=== PATIENT | female | born 1945 | race Caucasian/White ===

== ENCOUNTER → 2018-11-03 | Outpatient (CLI) | payer MEDICARE ==
[2018-11-03 11:27] LABS: HCT 40.7 % (34.0-46.0); HGB 13.5 gm/dL (11.4-16.0); MCHC 33.2 g/dL (31.0-37.0); MCV 93.4 fL (80.0-100.0); Mean Platelet Volume 7.1; Platelet Count 269 k/uL (150-450); RBC 4.35 m/uL (3.80-5.40); RDW 12.9 % (11.5-15.5); WBC 7.3 k/uL (3.8-10.6)
[2018-11-03 13:22] LABS: Erythrocyte Sedimentation Rate 20 mm/hr (0-20)
== END ==
LOC: LABWHC1 10:51
PROVIDERS: ATTEND Physician Assistant
DX: M25.562 Pain in left knee (principal); M71.162 Other infective bursitis, left knee
CPT/HCPCS: 36415; 83520; 85027; 85652; 86140

== ENCOUNTER → 2018-11-24 | Outpatient (CLI) | payer MEDICARE ==
--- NOTE | 2018-11-24 10:40 | US ---
LOWER EXTREMITY VENOUS INSUFFICIENCY SIDE PERFORMED: Bilateral 1) Color flow is present and patency is documented in the following vessels. No DVT or SVT is noted . EIV Common Femoral Vein Deep Femoral Vein Femoral Vein Popliteal Vein Proximal Calf Veins Greater Saph Vein Upper Small Saph Vein 2) There is venous reflux noted at the following venous levels: none Patient of large body habitus. IMPRESSION: No sonographic evidence of deep venous thrombosis within either lower extremity.
== END | disposition home or self-care (01) ==
LOC: RADUSWWP 07:39
PROVIDERS: ATTEND Internal Medicine Infectious Disease
DX: I73.9 Peripheral vascular disease, unspecified (principal); L97.909 Non-pressure chronic ulcer of unspecified part of unspecified lower leg with unspecified severity; Z87.891 Personal history of nicotine dependence
CPT/HCPCS: 93923; 93970

== ENCOUNTER 2021-04-30 08:28 | Inpatient (IN) | payer MEDICARE ==
[2021-04-30] MEDS ORDERED: IPRATROPIUM-ALBUTEROL 3 ML NEB INHALATION STA (08:48)
[2021-04-30] MEDS ORDERED: methylPREDNISolone SOD SUCCI 125 MG/2 ML VIAL IV STA (08:48)
--- NOTE | 2021-04-30 08:50 | ED ---
General Adult HPI - General Chief complaint: Upper Respiratory Infection Stated complaint: SOB/Nausea Time Seen by Provider: 04/30/21 08:36 Source: patient, RN notes reviewed Mode of arrival: wheelchair Limitations: physical limitation - History of Present Illness Initial comments: This a 76-year-old female presents emergency Department chief complaint shortness of breath. Patient states symptoms started approximately 8 days ago have gradually worsen especially last 2 days. She states the cough is improved but her dyspnea is worsening. Patient states that she has not been tested for COVID-19. Patient states that she has had no known exposures no history of asthma or diagnosis COPD no she states she was walking smoker has not smoked in several years. No reported fever. Denies any leg pain or leg swelling on the usual no history of CHF. - Related Data Home Medications Medication Instructions Recorded Confirmed No Known Home Medications 04/30/21 04/30/21 Allergies Allergy/AdvReac Type Severity Reaction Status Date / Time salicylates Allergy Anaphylaxis Verified 04/30/21 10:26 Review of Systems ROS Statement: Those systems with pertinent positive or pertinent negative responses have been documented in the HPI. ROS Other: All systems not noted in ROS Statement are negative. Past Medical History Past Medical History: No Reported History History of Any Multi-Drug Resistant Organisms: None Reported Past Surgical History: No Surgical Hx Reported Past Psychological History: No Psychological Hx Reported Smoking Status: Former smoker Past Alcohol Use History: Occasional Past Drug Use History: None Reported General Exam Limitations: physical limitation General appearance: alert, in distress Head exam: Present: atraumatic, normocephalic, normal inspection Eye exam: Present: normal appearance, PERRL, EOMI. Absent: scleral icterus, conjunctival injection, periorbital swelling ENT exam: Present: normal exam, mucous membranes moist Neck exam: Present: normal inspection. Absent: tenderness, meningismus, lymphadenopathy Respiratory exam: Present: respiratory distress, wheezes, decreased breath sounds. Absent: normal lung sounds bilaterally, rales, rhonchi, stridor Cardiovascular Exam: Present: regular rate, normal rhythm, normal heart sounds. Absent: systolic murmur, diastolic murmur, rubs, gallop, clicks GI/Abdominal exam: Present: soft, normal bowel sounds. Absent: distended, tenderness, guarding, rebound, rigid Extremities exam: Present: pedal edema. Absent: calf tenderness Neurological exam: Present: alert, oriented X3 Course Vital Signs 12/05/21 12/05/21 12/05/21 08:30 09:35 10:43 Temperature 97.6 F Pulse Rate 86 79 Respiratory 22 22 23 Rate Blood Pressure 166/94 O2 Sat by Pulse 93 L 89 L Oximetry Medical Decision Making - Medical Decision Making 76-year-old presented for dyspnea. Patient appeared to be in distress. Patient found to be: Positive. Patient will be admitted for further evaluation treatment. - Lab Data Result diagrams: 04/30/21 09:04 04/30/21 09:04 Lab Results 04/30/21 04/30/21 04/30/21 Range/Units 08:39 09:04 09:04 WBC 3.9 (3.8-10.6) k/uL RBC 4.71 (3.80-5.40) m/uL Hgb 14.6 (11.4-16.0) gm/dL Hct 41.8 (34.0-46.0) % MCV 88.9 (80.0-100.0) fL MCH 31.0 (25.0-35.0) pg MCHC 34.9 (31.0-37.0) g/dL RDW 12.5 (11.5-15.5) % Plt Count 191 (150-450) k/uL MPV 8.0 Neutrophils % 70 % Lymphocytes % 17 % Monocytes % 9 % Eosinophils % 1 % Basophils % 1 % Neutrophils # 2.7 (1.3-7.7) k/uL Lymphocytes # 0.7 L (1.0-4.8) k/uL Monocytes # 0.4 (0-1.0) k/uL Eosinophils # 0.0 (0-0.7) k/uL Basophils # 0.0 (0-0.2) k/uL PT 10.3 (9.0-12.0) sec INR 1.0 (<1.2) APTT 21.6 L (22.0-30.0) sec Sodium (137-145) mmol/L Potassium (3.5-5.1) mmol/L Chloride (98-107) mmol/L Carbon Dioxide (22-30) mmol/L Anion Gap mmol/L BUN (7-17) mg/dL Creatinine (0.52-1.04) mg/dL Est GFR (CKD-EPI)AfAm (>60 ml/min/1.73 sqM) Est GFR (CKD-EPI)NonAf (>60 ml/min/1.73 sqM) Glucose (74-99) mg/dL Plasma Lactic Acid Gregory (0.7-2.0) mmol/L Calcium (8.4-10.2) mg/dL Magnesium (1.6-2.3) mg/dL Total Bilirubin (0.2-1.3) mg/dL AST (14-36) U/L ALT (4-34) U/L Alkaline Phosphatase (38-126) U/L Troponin I (0.000-0.034) ng/mL NT-Pro-B Natriuret Pep pg/mL Total Protein (6.3-8.2) g/dL Albumin (3.5-5.0) g/dL Coronavirus (PCR) Detected A (Not Detectd) 04/30/21 04/30/21 04/30/21 Range/Units 09:04 09:04 09:04 WBC (3.8-10.6) k/uL RBC (3.80-5.40) m/uL Hgb (11.4-16.0) gm/dL Hct (34.0-46.0) % MCV (80.0-100.0) fL MCH (25.0-35.0) pg MCHC (31.0-37.0) g/dL RDW (11.5-15.5) % Plt Count (150-450) k/uL MPV Neutrophils % % Lymphocytes % % Monocytes % % Eosinophils % % Basophils % % Neutrophils # (1.3-7.7) k/uL Lymphocytes # (1.0-4.8) k/uL Monocytes # (0-1.0) k/uL Eosinophils # (0-0.7) k/uL Basophils # (0-0.2) k/uL PT (9.0-12.0) sec INR (<1.2) APTT (22.0-30.0) sec Sodium 133 L (137-145) mmol/L Potassium 3.9 (3.5-5.1) mmol/L Chloride 95 L (98-107) mmol/L Carbon Dioxide 29 (22-30) mmol/L Anion Gap 9 mmol/L BUN 13 (7-17) mg/dL Creatinine 0.39 L (0.52-1.04) mg/dL Est GFR (CKD-EPI)AfAm >90 (>60 ml/min/1.73 sqM) Est GFR (CKD-EPI)NonAf >90 (>60 ml/min/1.73 sqM) Glucose 137 H (74-99) mg/dL Plasma Lactic Acid Gregory 1.1 (0.7-2.0) mmol/L Calcium 8.5 (8.4-10.2) mg/dL Magnesium 2.1 (1.6-2.3) mg/dL Total Bilirubin 0.7 (0.2-1.3) mg/dL AST 37 H (14-36) U/L ALT 22 (4-34) U/L Alkaline Phosphatase 84 (38-126) U/L Troponin I <0.012 (0.000-0.034) ng/mL NT-Pro-B Natriuret Pep pg/mL Total Protein 6.1 L (6.3-8.2) g/dL Albumin 3.3 L (3.5-5.0) g/dL Coronavirus (PCR) (Not Detectd) 04/30/21 Range/Units 09:04 WBC (3.8-10.6) k/uL RBC (3.80-5.40) m/uL Hgb (11.4-16.0) gm/dL Hct (34.0-46.0) % MCV (80.0-100.0) fL MCH (25.0-35.0) pg MCHC (31.0-37.0) g/dL RDW (11.5-15.5) % Plt Count (150-450) k/uL MPV Neutrophils % % Lymphocytes % % Monocytes % % Eosinophils % % Basophils % % Neutrophils # (1.3-7.7) k/uL Lymphocytes # (1.0-4.8) k/uL Monocytes # (0-1.0) k/uL Eosinophils # (0-0.7) k/uL Basophils # (0-0.2) k/uL PT (9.0-12.0) sec INR (<1.2) APTT (22.0-30.0) sec Sodium (137-145) mmol/L Potassium (3.5-5.1) mmol/L Chloride (98-107) mmol/L Carbon Dioxide (22-30) mmol/L Anion Gap mmol/L BUN (7-17) mg/dL Creatinine (0.52-1.04) mg/dL Est GFR (CKD-EPI)AfAm (>60 ml/min/1.73 sqM) Est GFR (CKD-EPI)NonAf (>60 ml/min/1.73 sqM) Glucose (74-99) mg/dL Plasma Lactic Acid Gregory (0.7-2.0) mmol/L Calcium (8.4-10.2) mg/dL Magnesium (1.6-2.3) mg/dL Total Bilirubin (0.2-1.3) mg/dL AST (14-36) U/L ALT (4-34) U/L Alkaline Phosphatase (38-126) U/L Troponin I (0.000-0.034) ng/mL NT-Pro-B Natriuret Pep 186 pg/mL Total Protein (6.3-8.2) g/dL Albumin (3.5-5.0) g/dL Coronavirus (PCR) (Not Detectd) Disposition Clinical Impression: COVID-19, Hypoxia Disposition: ADMITTED IP TO THIS HOSP Referrals: Yao Delvalle DO [Primary Care Provider] - 1-2 days
[2021-04-30] MEDS ORDERED: ALBUTEROL HFA INHALER INHALATION STA (09:19)
--- NOTE | 2021-04-30 09:36 | XR ---
EXAMINATION TYPE: XR chest 2V DATE OF EXAM: 04/30/2021 COMPARISON: NONE HISTORY: Shortness of breath TECHNIQUE: Frontal and lateral views of the chest are obtained. FINDINGS: The lungs are clear of consolidative, interstitial or masslike opacity. There is no pneumothorax. There are small bilateral pleural effusions.. Mild cardiac prominence but t he pulmonary vasculature is not congested. The osseous structures and soft tissues are intact. IMPRESSION: Mild cardiomegaly with small bilateral pleural effusions.
[2021-04-30 09:38] LABS: Basophils % (A) 1 %; Eosinophils % (A) 1 %; HCT 41.8 % (34.0-46.0); HGB 14.6 gm/dL (11.4-16.0); Lymphocytes # (A) 0.7 k/uL (1.0-4.8); Lymphocytes % (A) 17 %; MCHC 34.9 g/dL (31.0-37.0); MCV 88.9 fL (80.0-100.0); Monocytes # (A) 0.4 k/uL (0-1.0); Monocytes % (A) 9 %; Neutrophils # (A) 2.7 k/uL (1.3-7.7); Neutrophils % (A) 70 %; Platelet Count 191 k/uL (150-450); RBC 4.71 m/uL (3.80-5.40); RDW 12.5 % (11.5-15.5); WBC 3.9 k/uL (3.8-10.6)
[2021-04-30 09:46] LABS: ALT 22 U/L (4-34); AST 37 U/L (14-36); African American GFR (CKD) >90 (>60 ml/min/1.73 sqM); Albumin 3.3 g/dL (3.5-5.0); Alkaline Phosphatase 84 U/L (38-126); Anion Gap 9 mmol/L; Blood Urea Nitrogen 13 mg/dL (7-17); Calcium 8.5 mg/dL (8.4-10.2); Carbon Dioxide 29 mmol/L (22-30); Chloride 95 mmol/L (98-107); Glucose 137 mg/dL (74-99); Magnesium 2.1 mg/dL (1.6-2.3); Non-African American GFR(CKD) >90 (>60 ml/min/1.73 sqM); Potassium 3.9 mmol/L (3.5-5.1); Sodium 133 mmol/L (137-145); Total Bilirubin 0.7 mg/dL (0.2-1.3); Total Protein 6.1 g/dL (6.3-8.2)
[2021-04-30 10:10] LABS: Prothrombin Time 10.3 sec (9.0-12.0)
[2021-04-30 10:15] LABS: Partial Thromboplastin Time 21.6 sec (22.0-30.0)
--- NOTE | 2021-04-30 12:24 | P.HPIM ---
History of Present Illness Patient is a pleasant 76-year-old female came in with compensative shortness of breath found to have Covid 19 pneumonia patient is presently hypoxic requiring 2 L of oxygen. Patient's symptoms of loss of smell cough has been going on for about 8 days. I do not have any d-dimer available at this time. Patient is not a smoker. Patient denied any fever chills at home patient doesn't have any fever here. Has been fatigued patient denied any diarrhea nausea vomiting. REVIEW OF SYSTEMS: CONSTITUTIONAL: No fever. HEENT: No recent visual problems or hearing problems. Denied any sore throat. CARDIOVASCULAR: No chest pain, orthopnea, PND, no palpitations, no syncope. PULMONARY: no hemoptysis. GASTROINTESTINAL: No diarrhea, no nausea, no vomiting, no abdominal pain. NEUROLOGICAL: No headaches, no weakness, no numbness. HEMATOLOGICAL: Denies any bleeding or petechiae. GENITOURINARY: Denies any burning micturition, frequency, or urgency. MUSCULOSKELETAL/RHEUMATOLOGICAL: Denies any joint pain, swelling, or any muscle pain. ENDOCRINE: Denies any polyuria or polydipsia. The rest of the 14-point review of systems is negative. PHYSICAL EXAMINATION: GENERAL: The patient is alert and oriented x3, not in any acute distress. Well developed, well nourished. HEENT: Pupils are round and equally reacting to light. EOMI. No scleral icterus. No conjunctival pallor. Normocephalic, atraumatic. No pharyngeal erythema. No thyromegaly. CARDIOVASCULAR: S1 and S2 present. No murmurs, rubs, or gallops. PULMONARY: Chest is clear to auscultation, no wheezing or crackles. ABDOMEN: Soft, nontender, nondistended, normoactive bowel sounds. No palpable organomegaly. MUSCULOSKELETAL: No joint swelling or deformity. EXTREMITIES: No cyanosis, clubbing, or pedal edema. NEUROLOGICAL: Gross neurological examination did not reveal any focal deficits. SKIN: No rashes. Assessment and plan Covid 19 pneumonia with hypoxia: Patient will be started on Decadron, we will supplementation to IV fluids. Because of the duration of symptoms patient is not a candidate for Remdesivir. Neurology will be consulted. -hypovolemic hyponatremia patient was started on gentle hydration DVT prophylaxis: Lanoxin, d-dimer pending Past Medical History Past Medical History: No Reported History History of Any Multi-Drug Resistant Organisms: None Reported Past Surgical History: No Surgical Hx Reported Past Psychological History: No Psychological Hx Reported Smoking Status: Former smoker Past Alcohol Use History: Occasional Past Drug Use History: None Reported Medications and Allergies Home Medications Medication Instructions Recorded Confirmed Type No Known Home Medications 04/30/21 04/30/21 History Allergies Allergy/AdvReac Type Severity Reaction Status Date / Time salicylates Allergy Anaphylaxis Verified 04/30/21 10:26 Physical Exam Vitals: Vital Signs Temp Pulse Resp BP Pulse Ox 04/30/21 10:43 79 23 89 L 04/30/21 09:35 22 04/30/21 08:30 97.6 F 86 22 166/94 93 L Intake and Output 04/29/21 04/30/21 04/30/21 22:59 06:59 14:59 Other: Weight 104.326 kg Results CBC & Chem 7: 04/30/21 09:04 04/30/21 09:04 Labs: Abnormal Lab Results - Last 24 Hours (Table) 04/30/21 04/30/21 04/30/21 Range/Units 08:39 09:04 09:04 Lymphocytes # 0.7 L (1.0-4.8) k/uL APTT 21.6 L (22.0-30.0) sec Sodium (137-145) mmol/L Chloride (98-107) mmol/L Creatinine (0.52-1.04) mg/dL Glucose (74-99) mg/dL AST (14-36) U/L Total Protein (6.3-8.2) g/dL Albumin (3.5-5.0) g/dL Coronavirus (PCR) Detected A (Not Detectd) 04/30/21 Range/Units 09:04 Lymphocytes # (1.0-4.8) k/uL APTT (22.0-30.0) sec Sodium 133 L (137-145) mmol/L Chloride 95 L (98-107) mmol/L Creatinine 0.39 L (0.52-1.04) mg/dL Glucose 137 H (74-99) mg/dL AST 37 H (14-36) U/L Total Protein 6.1 L (6.3-8.2) g/dL Albumin 3.3 L (3.5-5.0) g/dL Coronavirus (PCR) (Not Detectd)
[2021-04-30] MEDS ORDERED: ACETAMINOPHEN TAB 325 MG TAB PO PRN (13:17)
[2021-04-30] MEDS ORDERED: NALOXONE 0.4 MG/ML 1 ML VIAL IV PRN (13:17)
[2021-04-30 16:23] LABS: Glucose,Whole Blood 181 mg/dL (75-99)
[2021-04-30] MEDS: ASCORBIC ACID 500 MG TAB PO SCH ×2 (16:44→21:44)
[2021-04-30] MEDS: SODIUM CHLORIDE 0.9% 1,000 ML IV SCH (16:45)
[2021-04-30] MEDS: ENOXAPARIN 40 MG/0.4 ML SYRINGE SQ SCH (16:45)
[2021-04-30] MEDS: FAMOTIDINE 20 MG TAB PO SCH ×2 (16:45→21:43)
[2021-04-30] MEDS: INSULIN ASPART (NovoLOG) 100 UNIT/ML VIAL SQ SCH ×3 (17:00→21:43)
--- NOTE | 2021-04-30 17:48 | P.CNPUL ---
History of Present Illness Consult date: 04/30/21 Reason for consult: dyspnea, pneumonia History of present illness: This is a 76-year-old here patient hospitalized for COVID 19 related pneumonia. The patient started around 8 days ago to lose her sense of smell and she started having some shortness of breath and cough and. She is a pleasant 76-year-old female patient, who is presenting to the [facility]. No gastrointestinal symptoms of nausea vomiting or abdominal pain. No altered mentation. In the emergency, the patient was found to be afebrile. She was hemodynamically stable. Pulse ox was 93% dropped down to 89%. Her white cell count was 3.9 with hemoglobin of 14.6 and the patient count was 191, creatinine was 0.39 with a BUN of 13 and the sodium level was 133. The patient was placed on 2 L of oxygen by nasal cannula. Her COVID 19 testing came back positive. She had a d-dimer of 0.9, LFTs were normal, electrolytes were normal, proBNP level was nonelevated and the troponin was negative. Her chest x-ray shows some limited lower lobe infiltrate. No significant consolidation. She is currently on Decadron and Lovenox and IV fluids with normal saline at the rate of 75 mL an hour. She is also on vitamin C and vitamin D and zinc sulfate. Review of Systems CONSTITUTIONAL: No fever. HEENT: No recent visual problems or hearing problems. Denied any sore throat. CARDIOVASCULAR: No chest pain, orthopnea, PND, no palpitations, no syncope. PULMONARY: no hemoptysis. GASTROINTESTINAL: No diarrhea, no nausea, no vomiting, no abdominal pain. NEUROLOGICAL: No headaches, no weakness, no numbness. HEMATOLOGICAL: Denies any bleeding or petechiae. GENITOURINARY: Denies any burning micturition, frequency, or urgency. MUSCULOSKELETAL/RHEUMATOLOGICAL: Denies any joint pain, swelling, or any muscle pain. ENDOCRINE: Denies any polyuria or polydipsia. The rest of the 14-point review of systems is negative. Past Medical History Past Medical History: No Reported History History of Any Multi-Drug Resistant Organisms: None Reported Past Surgical History: No Surgical Hx Reported Past Psychological History: No Psychological Hx Reported Smoking Status: Former smoker Past Alcohol Use History: Occasional Past Drug Use History: None Reported Medications and Allergies Home Medications Medication Instructions Recorded Confirmed Type No Known Home Medications 04/30/21 04/30/21 History Allergies Allergy/AdvReac Type Severity Reaction Status Date / Time salicylates Allergy Anaphylaxis Verified 04/30/21 10:26 Physical Exam Vitals: Vital Signs Temp Pulse Resp BP Pulse Ox 04/30/21 14:30 95 24 107/69 96 04/30/21 10:43 79 23 89 L 04/30/21 09:35 22 04/30/21 08:30 97.6 F 86 22 166/94 93 L Intake and Output 04/30/21 04/30/21 04/30/21 06:59 14:59 22:59 Other: Weight 104.326 kg General appearance: alert, in distress, currently on 2 L of oxygen by nasal cannula. Breathing is nonlabored. Head exam: Present: atraumatic, normocephalic, normal inspection Eye exam: Present: normal appearance, PERRL, EOMI. Absent: scleral icterus, conjunctival injection, periorbital swelling ENT exam: Present: normal exam, mucous membranes moist Neck exam: Present: normal inspection. Absent: tenderness, meningismus, lymphadenopathy Respiratory exam: Present: respiratory distress, wheezes, decreased breath sounds. Absent: normal lung sounds bilaterally, rales, rhonchi, stridor Cardiovascular Exam: Present: regular rate, normal rhythm, normal heart sounds. Absent: systolic murmur, diastolic murmur, rubs, gallop, clicks GI/Abdominal exam: Present: soft, normal bowel sounds. Absent: distended, tenderness, guarding, rebound, rigid Extremities exam: Present: pedal edema. Absent: calf tenderness Neurological exam: Present: alert, oriented X3 Results - Laboratory Findings CBC and BMP: 04/30/21 09:04 04/30/21 09:04 PT/INR, D-dimer PT 10.3 sec (9.0-12.0) 04/30/21 09:04 INR 1.0 (<1.2) 04/30/21 09:04 D-Dimer 0.95 mg/L FEU (<0.60) H 04/30/21 09:04 Abnormal lab findings: Abnormal Labs 04/30/21 04/30/21 04/30/21 08:39 09:04 09:04 Lymphocytes # 0.7 L APTT 21.6 L D-Dimer Sodium Chloride Creatinine Glucose POC Glucose (mg/dL) AST Total Protein Albumin Coronavirus (PCR) Detected A 04/30/21 04/30/21 04/30/21 09:04 09:04 16:21 Lymphocytes # APTT D-Dimer 0.95 H Sodium 133 L Chloride 95 L Creatinine 0.39 L Glucose 137 H POC Glucose (mg/dL) 181 H AST 37 H Total Protein 6.1 L Albumin 3.3 L Coronavirus (PCR) - Diagnostic Findings Chest x-ray: image reviewed Assessment and Plan Plan: 1acute COVID 19 infection his symptoms started approximately 8 days ago. The patient presented to the hospital because of some increased cough and shortness of breath. She was found to mildly hypoxic cardiac output is approximately nasal cannula. She was hospitalized, started on Decadron and Lovenox. She is outside the window for Remdesivir. She is currently doing well. She is hemodynamic is stable. Inflammatory markers including d-dimer has been low. Rest of the markers are still pending for now. plan Continue current treatment Titrate oxygen flow to maintain saturation above 90% Currently on 2 L of Oxymizer cannula Continue Decadron 6 mg by mouth daily Lovenox 40 mg subcu every 24 hours Awaiting LDH and CRP Agree on the multivitamins Monitor progress.
[2021-04-30 18:44] LABS: C Reactive Protein 4.4 mg/dL (<1.0)
[2021-04-30 23:30] LABS: Glucose,Whole Blood 156 mg/dL (75-99)
[2021-05-01] MEDS: SODIUM CHLORIDE 0.9% 1,000 ML IV SCH (06:26)
[2021-05-01 08:54] LABS: HCT 42.6 % (37.2-46.3); HGB 13.9 g/dL (12.0-15.0); MCH 29.9 pg (27.0-32.0); MCHC 32.6 g/dL (32.0-37.0); MCV 91.6 fL (80.0-97.0); Mean Platelet Volume 10.4 fL (9.5-12.2); Platelet Count 226 X 10*3/uL (140-440); RBC 4.65 X 10*6/uL (4.10-5.20); RDW 12.3 % (11.5-14.5); WBC 4.59 X 10*3/uL (4.50-10.00)
[2021-05-01 09:05] LABS: Glucose,Whole Blood 119 mg/dL (75-99)
[2021-05-01 09:45] LABS: African American GFR (CKD) 118.9 (60.0-200.0); Albumin 3.5 g/dL (3.8-4.9); Albumin/Globulin Ratio 1.52 (1.60-3.17); Anion Gap 10.8 mmol/L (10.00-18.00); BUN/Creat Ratio 31.25 Ratio (12.00-20.00); Blood Urea Nitrogen 12.5 mg/dL (9.0-27.0); Calcium 8.5 mg/dL (8.7-10.3); Carbon Dioxide 26.2 mmol/L (20.0-27.5); Globulin 2.3 g/dL (1.6-3.3); Non-African American GFR(CKD) 102.6 (60.0-200.0); Potassium 3.9 mmol/L (3.5-5.5); Total Bilirubin 0.4 mg/dL (0.30-1.20); Total Protein 5.8 g/dL (6.2-8.2)
[2021-05-01] MEDS: INSULIN ASPART (NovoLOG) 100 UNIT/ML VIAL SQ SCH ×3 (10:22→22:29)
[2021-05-01] MEDS: ASCORBIC ACID 500 MG TAB PO SCH ×2 (10:24→22:29)
[2021-05-01] MEDS: FAMOTIDINE 20 MG TAB PO SCH ×2 (10:24→22:29)
[2021-05-01] MEDS: ZINC SULFATE 220 MG CAP PO SCH (10:24)
[2021-05-01] MEDS: dexAMETHasone 2 MG TAB PO SCH (10:24)
[2021-05-01] MEDS: ENOXAPARIN 40 MG/0.4 ML SYRINGE SQ SCH (10:30)
--- NOTE | 2021-05-01 12:10 | P.PN ---
Subjective Progress Note Date: 05/01/21 Principal diagnosis: Dyspnea This is a 76-year-old here patient hospitalized for COVID 19 related pneumonia. The patient started around 8 days ago to lose her sense of smell and she started having some shortness of breath and cough and. She is a pleasant 76-year-old female patient, who is presenting to the [facility]. No gastrointestinal symptoms of nausea vomiting or abdominal pain. No altered mentation. In the emergency, the patient was found to be afebrile. She was hemodynamically stable. Pulse ox was 93% dropped down to 89%. Her white cell count was 3.9 with hemoglobin of 14.6 and the patient count was 191, creatinine was 0.39 with a BUN of 13 and the sodium level was 133. The patient was placed on 2 L of oxygen by nasal cannula. Her COVID 19 testing came back positive. She had a d-dimer of 0.9, LFTs were normal, electrolytes were normal, proBNP level was nonelevated and the troponin was negative. Her chest x-ray shows some limited lower lobe infiltrate. No significant consolidation. She is currently on Decadron and Lovenox and IV fluids with normal saline at the rate of 75 mL an hour. She is also on vitamin C and vitamin D and zinc sulfate. On 05/01/2021 patient seen in follow-up in the emergency room, she still awaiting a bed on 4 S. She is currently up in a chair, she states she is feeling better, she's feeling hungry, breathing easier today. She is on 2 L of oxygen pulse ox is 96%. Her biggest complaint is that she still feeling tired. Occasional cough, no complaint of chest discomfort. She is afebrile, hemodynami tonie she stable. She's had no acute events overnight. She is currently on Decadron 6 mg daily, she is on prophylactic Lovenox 40 mg daily, she is on point, seen at a rate of 75 ML per hour, and she is on COVID-19 vitamins. His labs have been reviewed, d-dimer is improved and is down to 0.54, CBC is unremarkable, electrolytes and renal profile are unremarkable, her progesterone level was negative on admission is 0.04. Her LDH yesterday was 644, not significantly elevated, CRP is 4.4, follow-up inflammatory markers are still pending for today. Objective - Vital Signs Vital signs: Vital Signs Temp 98.7 F 05/01/21 09:10 Pulse 94 05/01/21 09:10 Resp 26 H 05/01/21 09:13 BP 137/59 05/01/21 09:10 Pulse Ox 92 L 05/01/21 09:10 Intake & Output 04/30/21 05/01/21 05/01/21 18:59 06:59 18:59 Weight 104.326 kg - Exam GENERAL EXAM: Alert, very pleasant, morbidly obese 76-year-old white female, on 2 L of oxygen with a pulse ox 96%, sitting up in the recliner, comfortable in no apparent distress. HEAD: Normocephalic/atraumatic. EYES: Normal reaction of pupils, equal size. Conjunctiva pink, sclera white. NOSE: Clear with pink turbinates. THROAT: No erythema or exudates. NECK: No masses, no JVD, no thyroid enlargement, no adenopathy. CHEST: No chest wall deformity. Symmetrical expansion. LUNGS: Equal air entry with bilateral crackles CVS: Regular rate and rhythm, normal S1 and S2, no gallops, no murmurs, no rubs ABDOMEN: Soft, nontender. No hepatosplenomegaly, normal bowel sounds, no guarding or rigidity. EXTREMITIES: No clubbing, 1+ lower extremity edema, no cyanosis, 2+ pulses and upper and lower extremities. MUSCULOSKELETAL: Muscle strength and tone normal. SPINE: No scoliosis or deformity SKIN: No rashes CENTRAL NERVOUS SYSTEM: Alert and oriented -3. No focal deficits, tone is normal in all 4 extremities. PSYCHIATRIC: Alert and oriented -3. Appropriate affect. Intact judgment and insight. - Labs CBC & Chem 7: 05/01/21 04:57 05/01/21 04:57 Labs: Abnormal Lab Results - Last 24 Hours (Table) 04/30/21 04/30/21 04/30/21 Range/Units 09:04 09:04 16:21 D-Dimer 0.95 H (<0.60) mg/L FEU Creatinine (0.6-1.5) mg/dL BUN/Creatinine Ratio (12.00-20.00) Ratio Glucose (70-110) mg/dL POC Glucose (mg/dL) 181 H (75-99) mg/dL Calcium (8.7-10.3) mg/dL Lactate Dehydrogenase 644 H (313-618) U/L C-Reactive Protein 4.4 H (<1.0) mg/dL Total Protein (6.2-8.2) g/dL Albumin (3.8-4.9) g/dL Albumin/Globulin Ratio (1.60-3.17) g/dL 04/30/21 05/01/21 05/01/21 Range/Units 23:23 04:57 08:59 D-Dimer (<0.60) mg/L FEU Creatinine 0.4 L (0.6-1.5) mg/dL BUN/Creatinine Ratio 31.25 H (12.00-20.00) Ratio Glucose 137 H (70-110) mg/dL POC Glucose (mg/dL) 156 H 119 H (75-99) mg/dL Calcium 8.5 L (8.7-10.3) mg/dL Lactate Dehydrogenase (313-618) U/L C-Reactive Protein (<1.0) mg/dL Total Protein 5.8 L (6.2-8.2) g/dL Albumin 3.5 L (3.8-4.9) g/dL Albumin/Globulin Ratio 1.52 L (1.60-3.17) g/dL Assessment and Plan Plan: Assessment: #1. Acute hypoxic respiratory failure related to acute COVID-19 pneumonia, patient presented with a day history of symptoms, she was outside the window for Remdesivir. She was mildly hypoxic and she is requiring 2 L of oxygen per nasal cannula. She is currently on Decadron and Lovenox. #2. Former smoker #3. Morbid obesity with BMI of 38.3 kg/m Plan: Patient is breathing comfortably today, remains on 2 L of oxygen Continue Decadron and Lovenox, continue COVID-19 vitamins Awaiting follow-up inflammatory markers however they were not significantly elevated on admission labs We'll continue to follow her clinical course, clinically she feels and looks better today If she continues to be stable and remains on less than 5 L of supplemental oxygen may consider for discharge home in another 24 hours I performed a history & physical examination of the patient and discussed their management with my nurse practitioner, Eloisa Strong. I reviewed the nurse practitioner's note and agree with the documented findings and plan of care. Lung sounds are positive for dim breath sounds throughout the lung hernandez. The findings and the impression was discussed with the patient. I attest to the documentation by the nurse practitioner. Time with Patient: Less than 30
[2021-05-01 17:48] LABS: Glucose,Whole Blood 124 mg/dL (75-99)
--- NOTE | 2021-05-01 22:41 | P.PN ---
Subjective Progress Note Date: 05/01/21 Patient is a pleasant 76-year-old female came in with compensative shortness of breath found to have Covid 19 pneumonia patient is presently hypoxic requiring 2 L of oxygen. Patient's symptoms of loss of smell cough has been going on for about 8 days. I do not have any d-dimer available at this time. Patient is not a smoker. Patient denied any fever chills at home patient doesn't have any fever here. Has been fatigued patient denied any diarrhea nausea vomiting. 05/01/2021 Patient is seen and evaluated in follow-up this morning with some mild shortness of breath although patient states his no worsening and per nursing staff continues to remove oxygen. On examination patient was on room air and maintaining 90% pulse ox. Pulmonary following and patient is continued on oral dexamethasone along with vitamin and zinc supplements and will continue subcutaneous Lovenox. Patient was also receiving some gentle IV hydration of normal saline and will discontinue. Will add incentive spirometer and encourage the patient uses at least 10 times every hour while awake and encouraged increased activity. Patient states she feels generally weak and tired but denies any worsening shortness of breath. Labs: White blood count is 4.59, hemoglobin is 13.9, platelets are 226, d-dimer is 0.54, sodium is 137, potassium 3.9, creatinine 0.4, calcium 8.5 Review of systems: Constitutional: reports of fatigue, no reports of fever, or chills Cardiovascular: No reports of chest pain or palpitations Respiratory: No reports of shortness of breath, reports cough GI: No reports of nausea, vomiting, or diarrhea : No reports of dysuria or retention Neurovascular: reports mild weakness All medications have been reviewed Active Medications Acetaminophen (Acetaminophen Tab 325 Mg Tab) 650 mg PO Q6HR PRN PRN Reason: Mild Pain or Fever > 100.5 Ascorbic Acid (Ascorbic Acid 500 Mg Tab) 500 mg PO BID [facility] Last Admin: 05/01/21 10:24 Dose: 500 mg Documented by: Dexamethasone (Dexamethasone 2 Mg Tab) 6 mg PO DAILY [facility] Last Admin: 05/01/21 10:24 Dose: 6 mg Documented by: Enoxaparin Sodium (Enoxaparin 40 Mg/0.4 Ml Syringe) 40 mg SQ DAILY [facility] Last Admin: 05/01/21 10:30 Dose: 40 mg Documented by: Famotidine (Famotidine 20 Mg Tab) 20 mg PO BID [facility] Last Admin: 05/01/21 10:24 Dose: 20 mg Documented by: Insulin Aspart (Insulin Aspart (Novolog) 100 Unit/Ml Vial) 0 unit SQ ACHS [facility]; Protocol Last Admin: 05/01/21 10:22 Dose: Not Given Documented by: Naloxone HCl (Naloxone 0.4 Mg/Ml 1 Ml Vial) 0.2 mg IV Q2M PRN PRN Reason: Opioid Reversal Zinc Sulfate (Zinc Sulfate 220 Mg Cap) 220 mg PO DAILY [facility] Last Admin: 05/01/21 10:24 Dose: 220 mg Documented by: PHYSICAL EXAMINATION: GENERAL: The patient is alert and oriented x3, not in any acute distress. Well developed, well nourished. HEENT: Pupils are round and equally reacting to light. EOMI. No scleral icterus. No conjunctival pallor. Normocephalic, atraumatic. No pharyngeal erythema. No thyromegaly. CARDIOVASCULAR: S1 and S2 present. No murmurs, rubs, or gallops. PULMONARY: diminished breath sounds bilaterally with no wheezing or crackles. ABDOMEN: Soft, obese, nontender, nondistended, normoactive bowel sounds. No palpable organomegaly. MUSCULOSKELETAL: No joint swelling or deformity. EXTREMITIES: No cyanosis, clubbing, or pedal edema. NEUROLOGICAL: Gross neurological examination did not reveal any focal deficits. SKIN: No rashes. Assessment: -Covid 19 pneumonia with hypoxia: Patient maintained on Decadron, and covid suplements and lovenox, pulmonary following. Because of the duration of symptoms patient is not a candidate for Remdesivir. -hypovolemic hyponatremia patient was started on gentle hydration and improved and will discontinue IV fluids -non-compliance with medications -obesity with a BMI of 38.3 -DVT prophylaxis: on lovenox -remote history of nicotine use -Full code Plan: wean FI02 as tolerated, currently on 2L via ID encourage increased activity and Incentive spirometry ordered and encouraged to use at least 10 times every hour while awake Sodium improved and will discontinue IV fluids elevated blood glucose, most likely due to steroids Continue lovenox, oral dexamethasone, and vitamin and zinc supplements follow up with am labs and chest xray Pulmonary following and appreciate input. Possible discharge in 24 hours Guarded prognosis Objective - Vital Signs Vital signs: Vital Signs Temp 96.9 F L 05/01/21 12:00 Pulse 85 05/01/21 12:00 Resp 22 05/01/21 12:00 BP 169/89 05/01/21 12:00 Pulse Ox 92 L 05/01/21 12:00 Intake & Output 04/30/21 05/01/21 05/01/21 18:59 06:59 18:59 Weight 104.326 kg - Labs CBC & Chem 7: 05/01/21 04:57 05/01/21 04:57 Labs: Abnormal Lab Results - Last 24 Hours (Table) 04/30/21 04/30/21 04/30/21 Range/Units 09:04 16:21 23:23 Creatinine (0.6-1.5) mg/dL BUN/Creatinine Ratio (12.00-20.00) Ratio Glucose (70-110) mg/dL POC Glucose (mg/dL) 181 H 156 H (75-99) mg/dL Calcium (8.7-10.3) mg/dL Lactate Dehydrogenase 644 H (313-618) U/L C-Reactive Protein 4.4 H (<1.0) mg/dL Total Protein (6.2-8.2) g/dL Albumin (3.8-4.9) g/dL Albumin/Globulin Ratio (1.60-3.17) g/dL 05/01/21 05/01/21 Range/Units 04:57 08:59 Creatinine 0.4 L (0.6-1.5) mg/dL BUN/Creatinine Ratio 31.25 H (12.00-20.00) Ratio Glucose 137 H (70-110) mg/dL POC Glucose (mg/dL) 119 H (75-99) mg/dL Calcium 8.5 L (8.7-10.3) mg/dL Lactate Dehydrogenase (313-618) U/L C-Reactive Protein (<1.0) mg/dL Total Protein 5.8 L (6.2-8.2) g/dL Albumin 3.5 L (3.8-4.9) g/dL Albumin/Globulin Ratio 1.52 L (1.60-3.17) g/dL
[2021-05-02 07:25] LABS: Glucose,Whole Blood 107 mg/dL (75-99)
[2021-05-02] MEDS: INSULIN ASPART (NovoLOG) 100 UNIT/ML VIAL SQ SCH ×2 (08:07→12:12)
--- NOTE | 2021-05-02 08:09 | XR ---
EXAMINATION TYPE: XR chest 1V portable DATE OF EXAM: 05/02/2021 COMPARISON: 04/30/2021 INDICATION: Covid TECHNIQUE: Single frontal view of the chest is obtained. FINDINGS: The heart size is normal. The pulmonary vasculature is normal. The lungs are clear. IMPRESSION: 1. No acute pulmonary process.
[2021-05-02] MEDS: ENOXAPARIN 40 MG/0.4 ML SYRINGE SQ SCH (08:16)
[2021-05-02] MEDS: FAMOTIDINE 20 MG TAB PO SCH (08:17)
[2021-05-02] MEDS: dexAMETHasone 2 MG TAB PO SCH (08:17)
[2021-05-02] MEDS: ZINC SULFATE 220 MG CAP PO SCH (08:17)
[2021-05-02] MEDS: ASCORBIC ACID 500 MG TAB PO SCH (08:17)
--- NOTE | 2021-05-02 09:14 | P.PN ---
Subjective Progress Note Date: 05/02/21 Principal diagnosis: Dyspnea This is a 76-year-old here patient hospitalized for COVID 19 related pneumonia. The patient started around 8 days ago to lose her sense of smell and she started having some shortness of breath and cough and. She is a pleasant 76-year-old female patient, who is presenting to the [facility]. No gastrointestinal symptoms of nausea vomiting or abdominal pain. No altered mentation. In the emergency, the patient was found to be afebrile. She was hemodynamically stable. Pulse ox was 93% dropped down to 89%. Her white cell count was 3.9 with hemoglobin of 14.6 and the patient count was 191, creatinine was 0.39 with a BUN of 13 and the sodium level was 133. The patient was placed on 2 L of oxygen by nasal cannula. Her COVID 19 testing came back positive. She had a d-dimer of 0.9, LFTs were normal, electrolytes were normal, proBNP level was nonelevated and the troponin was negative. Her chest x-ray shows some limited lower lobe infiltrate. No significant consolidation. She is currently on Decadron and Lovenox and IV fluids with normal saline at the rate of 75 mL an hour. She is also on vitamin C and vitamin D and zinc sulfate. On 05/01/2021 patient seen in follow-up in the emergency room, she still awaiting a bed on 4 S. She is currently up in a chair, she states she is feeling better, she's feeling hungry, breathing easier today. She is on 2 L of oxygen pulse ox is 96%. Her biggest complaint is that she still feeling tired. Occasional cough, no complaint of chest discomfort. She is afebrile, hemodynami tonie she stable. She's had no acute events overnight. She is currently on Decadron 6 mg daily, she is on prophylactic Lovenox 40 mg daily, she is on point, seen at a rate of 75 ML per hour, and she is on COVID-19 vitamins. His labs have been reviewed, d-dimer is improved and is down to 0.54, CBC is unremarkable, electrolytes and renal profile are unremarkable, her progesterone level was negative on admission is 0.04. Her LDH yesterday was 644, not significantly elevated, CRP is 4.4, follow-up inflammatory markers are still pending for today. On 05/02/2021 patient seen in follow-up on medical surgical floor, she is currently on room air with a pulse ox of 90-92%, she has not been tested for home oxygen with ambulation, she is afebrile, hemodynamically she is stable, her breathing is improving, she has occasional cough, no phlegm production, minimal crackles on today's exam at bilateral bases, with a few scattered rhonchi. No wheezing, no complaints of chest pain. No nausea vomiting or diarrhea. Patient has been ambulating tolerating activity well. She would like to go home today, continues on Decadron, prophylactic Lovenox and COVID-19 vitamins, she's had no acute events overnight. Today's chest x-ray has been reviewed showing no acute pulmonary process. Yesterday's labs have been reviewed. Patient is on a bit emotional about the loss of her , who a year ago. She states being in the hospital is probably making it worse. Otherwise no complaints, and she would like to go home today. Objective - Vital Signs Vital signs: Vital Signs Temp 97.4 F L 05/02/21 05:26 Pulse 78 05/02/21 05:26 Resp 20 05/02/21 05:26 BP 174/86 05/02/21 05:26 Pulse Ox 90 L 05/02/21 05:26 Intake & Output 05/01/21 05/02/21 05/02/21 18:59 06:59 18:59 Weight 104.326 kg Other: # Voids 1 - Exam GENERAL EXAM: Alert, very pleasant, morbidly obese 76-year-old white female, on room air with a pulse ox 92%, sitting up in the recliner, comfortable in no apparent distress. HEAD: Normocephalic/atraumatic. EYES: Normal reaction of pupils, equal size. Conjunctiva pink, sclera white. NOSE: Clear with pink turbinates. THROAT: No erythema or exudates. NECK: No masses, no JVD, no thyroid enlargement, no adenopathy. CHEST: No chest wall deformity. Symmetrical expansion. LUNGS: Equal air entry with bilateral crackles CVS: Regular rate and rhythm, normal S1 and S2, no gallops, no murmurs, no rubs ABDOMEN: Soft, nontender. No hepatosplenomegaly, normal bowel sounds, no guarding or rigidity. EXTREMITIES: No clubbing, 1+ lower extremity edema, no cyanosis, 2+ pulses and upper and lower extremities. MUSCULOSKELETAL: Muscle strength and tone normal. SPINE: No scoliosis or deformity SKIN: No rashes CENTRAL NERVOUS SYSTEM: Alert and oriented -3. No focal deficits, tone is normal in all 4 extremities. PSYCHIATRIC: Alert and oriented -3. Appropriate affect. Intact judgment and insight. - Labs CBC & Chem 7: 05/01/21 04:57 05/01/21 04:57 Labs: Abnormal Lab Results - Last 24 Hours (Table) 05/01/21 05/01/21 05/02/21 Range/Units 04:57 17:42 07:24 Creatinine 0.4 L (0.6-1.5) mg/dL BUN/Creatinine Ratio 31.25 H (12.00-20.00) Ratio Glucose 137 H (70-110) mg/dL POC Glucose (mg/dL) 124 H 107 H (75-99) mg/dL Calcium 8.5 L (8.7-10.3) mg/dL Total Protein 5.8 L (6.2-8.2) g/dL Albumin 3.5 L (3.8-4.9) g/dL Albumin/Globulin Ratio 1.52 L (1.60-3.17) g/dL Assessment and Plan Plan: Assessment: #1. Acute hypoxic respiratory failure related to acute COVID-19 pneumonia, patient presented with a day history of symptoms, she was outside the window for Remdesivir. She was mildly hypoxic and she is requiring 2 L of oxygen per nasal cannula. She is currently on Decadron and Lovenox. Currently off the oxygen, and maintaining O2 saturations at 90-92% #2. 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 Morbid obesity with BMI of 38.3 kg/m Plan: Patient continues to improve, currently off supplemental oxygen, maintaining O2 saturations at 90-92% Follow-up chest x-ray from yesterday shows clear lungs Vital signs have been stable, increase activity as tolerated Obtain home oxygen assessment with ambulation Stable for discharge home today to complete a ten-day course of Decadron, and patient can continue on vitamin C, vitamin D and zinc She will need outpatient follow-up with Dr. Jeffery in the office in 2 weeks She may need a PFT down the road, she may have a component of COPD related to [id number] smoking history I performed a history & physical examination of the patient and discussed their management with my nurse practitioner, Eloisa Strong. I reviewed the nurse practitioner's note and agree with the documented findings and plan of care. Lung sounds are positive for dim breath sounds throughout the lung hernandez. The findings and the impression was discussed with the patient. I attest to the documentation by the nurse practitioner. Time with Patient: Less than 30
[2021-05-02 11:01] VITALS: RESP 19
[2021-05-02 11:37] LABS: Glucose,Whole Blood 123 mg/dL (75-99)
[2021-05-02 11:51] LABS: C Reactive Protein 0.6 mg/dL (0.00-0.80)
[2021-05-02 13:04] VITALS: BMI 38.2
[2021-05-02 14:03] VITALS: BP 139/81; PULSE 98; TEMP 98.2
--- NOTE | 2021-05-02 18:44 | P.DS ---
Providers Date of admission: 04/30/21 13:17 Expected date of discharge: 05/02/21 Attending physician: Yesica Martínez Consults: 04/30/21 12:19 Consult Physician Routine Consulting Provider: Heather Jeffery Consult Reason/Comments: COVID Do you want consulting provider notified?: Yes Primary care physician: Yao [facility] Course: Final diagnosis -Covid 19 pneumonia with hypoxia -hypovolemic hyponatremia improved -non-compliance with medications -depression -obesity with a BMI of 38.3 -DVT prophylaxis -remote history of nicotine use -Full code Discharge disposition Patient is being discharged in a stable condition with guarded prognosis to home. Patient will follow-up with Dr. Son in the outpatient setting upon discharge. Patient will also need to follow-up with pulmonary on discharge. Patient will continue on 2L of 02 via NC secondary to covid 19. Total time taken is greater than 35 minutes. Hospital course Patient is a pleasant 76-year-old female came in with compensative shortness of breath found to have Covid 19 pneumonia patient is presently hypoxic requiring 2 L of oxygen. Patient's symptoms of loss of smell cough has been going on for about 8 days. I do not have any d-dimer available at this time. Patient is not a smoker. Patient denied any fever chills at home patient doesn't have any fever here. Has been fatigued patient denied any diarrhea nausea vomiting. 05/01/2021 Patient is seen and evaluated in follow-up this morning with some mild shortness of breath although patient states his no worsening and per nursing staff continues to remove oxygen. On examination patient was on room air and maintaining 90% pulse ox. Pulmonary following and patient is continued on oral dexamethasone along with vitamin and zinc supplements and will continue subcutaneous Lovenox. Patient was also receiving some gentle IV hydration of normal saline and will discontinue. Will add incentive spirometer and encourage the patient uses at least 10 times every hour while awake and encouraged increased activity. Patient states she feels generally weak and tired but denies any worsening shortness of breath. 05/02/2021 Patient seen and evaluated this morning and currently sitting comfortably up in the chair on room air. Home 02 evaluation was done and oxygen saturations revealed 88% on room air with ambulation. Patient will require 02 via NC of 2 liters secondary to covid 19. Patient to follow up with pulmonary outpatient and given oral dexamethasone for discharge. Patient will continue covid vitamins and encouraged incentive spirometer use. Patient also with some depression over the loss of her one year ago and will start low dose celexa and encouraged follow up with primary care provider and community mental health for counseling. Patient agreed with this treatment plan. Patient denies any suicidal thoughts or thoughts of wanting to harm herself or others. Patient is eager to go home today and has been cleared by pulmonary. Currently no reports of chest pain, worsening shortness of breath, or palpitations. Patient is afebrile. Patient will be discharged home today. Guarded prognosis. Gen: This is 76-year-old female who is awake, alert and oriented 3, well- developed, well-nourished.. currently on 2L via NC HEENT: Head is atraumatic, normocephalic. Pupils equal, round. Sclerae is anict jennifer. NECK: Supple. No JVD. No lymphadenopathy. No thyromegaly. LUNGS: Breath sounds are diminished at the bases with no wheezing or rhonchi noted. No intercostal retractions. HEART: S1, S2 are muffled ABDOMEN: Soft. Obese. Bowel sounds are present. No masses. No tenderness. EXTREMITIES: generalized edema. No calf tenderness. NEUROLOGICAL: Alert and oriented 3, no focal deficit SKIN: no rashes or lesions noted Please refer to medication reconciliation sheet for a list of medications. Patient Condition at Discharge: Fair Plan - Discharge Summary Discharge Rx Participant: No New Discharge Prescriptions: New Dexamethasone [Decadron] 6 mg PO DAILY 7 Days #7 tablet Citalopram Hydrobromide [CeleXA] 10 mg PO DAILY 30 Days #30 tab Zinc Sulfate [Orazinc] 220 mg PO DAILY 30 Days #30 cap Acetaminophen Tab [Tylenol] 650 mg PO Q6HR PRN tab PRN Reason: Mild Pain Or Fever > 100.5 Albuterol Inhaler [Ventolin Hfa Inhaler] 2 puff INHALATION RT-QID PRN 30 Days #8 gm PRN Reason: Shortness Of Breath Famotidine [Pepcid] 20 mg PO BID #30 tab Ascorbic Acid [Vitamin C] 500 mg PO BID 30 Days #60 tab Discharge Medication List Acetaminophen Tab [Tylenol] 650 mg PO Q6HR PRN tab 05/02/21 [Rx] Albuterol Inhaler [Ventolin Hfa Inhaler] 2 puff INHALATION RT-QID PRN 30 Days #8 gm 05/02/21 [Rx] Ascorbic Acid [Vitamin C] 500 mg PO BID 30 Days #60 tab 05/02/21 [Rx] Citalopram Hydrobromide [CeleXA] 10 mg PO DAILY 30 Days #30 tab 05/02/21 [Rx] Dexamethasone [Decadron] 6 mg PO DAILY 7 Days #7 tablet 05/02/21 [Rx] Famotidine [Pepcid] 20 mg PO BID #30 tab 05/02/21 [Rx] Zinc Sulfate [Orazinc] 220 mg PO DAILY 30 Days #30 cap 05/02/21 [Rx] Follow up Appointment(s)/Referral(s): [facility],Equipment [NON-STAFF] - As Needed (*Please call [facility] once home to arrange delivery of oxygen concentrator. ) Yao Son DO [Primary Care Provider] - 05/04/21 10:20 am (VIRTUAL APPOINTMENT ) Heather Jeffery MD [STAFF PHYSICIAN] - 06/13/21 9:15 am Patient Instructions/Handouts: Coronavirus Disease 2019 (COVID-19) Activity/Diet/Wound Care/Special Instructions: Activity Limited until follow-up Follow-up with primary care provider on discharge Continue taking medications as prescribed Follow-up with pulmonary outpatient Discharge Disposition: HOME SELF-CARE
== END 2021-05-02 14:46 | disposition home or self-care (01) | DRG 177 ==
LOC: EC 08:28 → 4SSUR 13:17
PROVIDERS: ADMIT Internal Medicine; ATTEND Internal Medicine
DX: U07.1 COVID-19 (principal); J96.01 Acute respiratory failure with hypoxia; J12.82 Pneumonia due to coronavirus disease 2019; E87.1 Hypo-osmolality and hyponatremia; F32.A Depression, unspecified; E66.01 Morbid (severe) obesity due to excess calories; E86.1 Hypovolemia; Z68.38 Body mass index [BMI] 38.0-38.9, adult; Z88.6 Allergy status to analgesic agent; Z87.891 Personal history of nicotine dependence; Z91.14 Patient's other noncompliance with medication regimen
CPT/HCPCS: 36415; 71045; 71046; 80053; 83605; 83615; 83735; 83880; 84145; 84484; 85025; 85027; 85379; 85610; 85730; 86140; 87635; 93005; 94640; 96361; 96374; 99285

== ENCOUNTER 2024-03-26 03:16 | Emergency (ER) | payer MEDICARE ==
[2024-03-26 03:45] VITALS: RESP 18
[2024-03-26 05:06] LABS: Prothrombin Time 11.1 sec (10.0-12.5)
[2024-03-26 05:07] LABS: Partial Thromboplastin Time 23.5 sec (22.0-30.0)
[2024-03-26 05:14] LABS: Basophils % (A) 0 %; Eosinophils # (A) 0.1 k/uL (0-0.7); Eosinophils % (A) 1 %; HCT 33.6 % (34.0-46.0); HGB 10.4 gm/dL (11.4-16.0); Hypochromasia Slight; Lymphocytes # (A) 0.9 k/uL (1.0-4.8); Lymphocytes % (A) 18 %; MCH 29.6 pg (25.0-35.0); MCHC 31.1 g/dL (31.0-37.0); MCV 95.3 fL (80.0-100.0); Monocytes # (A) 0.3 k/uL (0-1.0); Monocytes % (A) 6 %; Neutrophils # (A) 3.4 k/uL (1.3-7.7); Neutrophils % (A) 73 %; Platelet Count 194 k/uL (150-450); RBC 3.52 m/uL (3.80-5.40); RDW 14.2 % (11.5-15.5); WBC 4.7 k/uL (3.8-10.6)
[2024-03-26 05:23] LABS: African American GFR (CKD) >90 (>60 ml/min/1.73 sqM); Blood Urea Nitrogen 15 mg/dL (7-17); Calcium 8.6 mg/dL (8.4-10.2); Chloride 91 mmol/L (98-107); Glucose 128 mg/dL (74-99); Non-African American GFR(CKD) >90 (>60 ml/min/1.73 sqM); Potassium 3.5 mmol/L (3.5-5.1); Sodium 136 mmol/L (137-145)
[2024-03-26 05:29] LABS: Anion Gap 4 mmol/L
[2024-03-26 05:40] LABS: Carbon Dioxide 41 mmol/L (22-30)
[2024-03-26] MEDS: OXYMETAZOLINE 0.05% NASL SPRAY 1 SPRAY BOTTLE NASAL STA (06:14)
[2024-03-26] MEDS: TRANEXAMIC 1,000 MG/100ML-NACL 1,000 MG in SALINE 1 100ML.BAG IVPB ONE (06:14)
[2024-03-26 06:41] VITALS: BP 137/62; PULSE 76
[2024-03-26] MEDS: BACITRACIN OINT 1 EACH PACKET TOPICAL ONE (07:02)
--- NOTE | 2024-03-26 07:06 | ED ---
ENT HPI - General Chief complaint: ENT Stated complaint: Nose Bleed Time Seen by Provider: 03/26/24 03:45 Source: EMS Mode of arrival: EMS - History of Present Illness Initial comments: This patient is 79-year-old woman who presents to have evaluation of nosebleed. She states that she has been having intermittent episodes going back 1 week. She states that today she was unable to get it to stop at home. This episode started proximately 2 hours ago. The patient subsequently called EMS and they applied pressure and the bleeding has stopped now. Patient denies facial pain. No fever or chills. No symptoms of anemia. MD complaint: epistaxis Onset/Timin -: week(s) Location: nose Severity scale (1-10): 0 Consistency: intermittent Improves with: pressure Worsens with: none - Related Data Previous Rx's Medication Instructions Recorded Acetaminophen Tab [Tylenol] 650 mg PO Q6HR PRN tab 05/02/21 Albuterol Inhaler [Ventolin Hfa 2 puff INHALATION RT-QID PRN 30 05/02/21 Inhaler] Days #8 gm Ascorbic Acid [Vitamin C] 500 mg PO BID 30 Days #60 tab 05/02/21 Citalopram Hydrobromide [CeleXA] 10 mg PO DAILY 30 Days #30 tab 05/02/21 Famotidine [Pepcid] 20 mg PO BID #30 tab 05/02/21 Zinc Sulfate [Orazinc] 220 mg PO DAILY 30 Days #30 cap 05/02/21 dexAMETHasone [Decadron] 6 mg PO DAILY 7 Days #7 tablet 05/02/21 Allergies Allergy/AdvReac Type Severity Reaction Status Date / Time salicylates Allergy Anaphylaxis Verified 04/30/21 10:26 Review of Systems ROS Statement: Those systems with pertinent positive or pertinent negative responses have been documented in the HPI. ROS Other: All systems not noted in ROS Statement are negative. Constitutional: Denies: fever, chills, weakness Eyes: Denies: eye discharge ENT: Reports: epistaxis. Denies: congestion Respiratory: Denies: cough, dyspnea Cardiovascular: Denies: chest pain, palpitations, syncope Gastrointestinal: Denies: abdominal pain, vomiting Skin: Denies: rash Neurological: Denies: headache, weakness Hematological/Lymphatic: Denies: easy bleeding Past Medical History Past Medical History: Skin Disorder Additional Past Medical History / Comment(s): Past L lower leg wound. History of Any Multi-Drug Resistant Organisms: None Reported Past Surgical History: No Surgical Hx Reported Past Anesthesia/Blood Transfusion Reactions: Unable to Obtain Additional Past Anesthesia/Blood Transfusion Reaction / Comment(s): Pt states she has never had surgery. Smoking Status: Former smoker - Past Family History Father Family Medical History: No Reported History Additional Family Medical History / Comment(s): Father was healthy Mother Family Medical History: No Reported History Additional Family Medical History / Comment(s): Mother was healthy. General Exam General appearance: alert, in no apparent distress Head exam: Present: atraumatic, normocephalic Eye exam: Present: normal appearance. Absent: scleral icterus, conjunctival injection ENT exam: Present: normal oropharynx Neck exam: Present: normal inspection Respiratory exam: Present: normal lung sounds bilaterally. Absent: respiratory distress, wheezes, rales, rhonchi, stridor, accessory muscle use Cardiovascular Exam: Present: regular rate, normal rhythm, normal heart sounds. Absent: systolic murmur, diastolic murmur, rubs, gallop Neurological exam: Present: alert Skin exam: Present: warm, dry, intact, normal color Course Vital Signs 03/26/24 03/26/24 03:41 06:33 Pulse Rate 83 76 Respiratory 18 18 Rate Blood Pressure 118/68 137/62 O2 Sat by Pulse 96 99 Oximetry Medical Decision Making - Medical Decision Making Was pt. sent in by a medical professional or institution ([facility]ONATHAN Morton, SIGN PAINTER, urgent care, hospital, or correction...) When possible be specific @ -[No] Did you speak to anyone other than the patient for history (EMS, parent, family, police, friend...)? What history was obtained from this source @ -[No] Did you review nursing and triage notes (agree or disagree)? Why? @ -[I reviewed and agree with nursing and triage notes] Were old charts reviewed (outside hosp., previous admission, EMS record, old EKG, old radiological studies, urgent care reports/EKG's, correction records)? Report findings @ -[No old charts were reviewed] Differential Diagnosis (chest pain, altered mental status, abdominal pain women, abdominal pain men, vaginal bleeding, weakness, fever, dyspnea, syncope, headache, dizziness, GI bleed, back pain, seizure, CVA, palpatations, mental health, musculoskeletal)? @ -[Differential diagnosis includes bleeding diathesis, trauma, malignancy, sinusitis, arteriovenous malformation, and other conditions EKG interpreted by me (3pts min.). @ -[As above] X-rays interpreted by me (1pt min.). @ -[None done] CT interpreted by me (1pt min.). @ -[None done] U/S interpreted by me (1pt. min.). @ -[None done] What testing was considered but not performed or refused? (CT, X-rays, U/S, labs)? Why? @ -[None] What meds were considered but not given or refused? Why? @ -[None] Did you discuss the management of the patient with other professionals (professionals i.e. , PA, SIGN PAINTER, lab, RT, psych nurse, 7th grade social studies teacher, wet mixer, te acher, detention officer, catalytic case operator)? Give summary @ -[No] Was smoking cessation discussed for >3mins.? @ -[No] Was critical care preformed (if so, how long)? @ -[No] Were there social determinants of health that impacted care today? How? (Homelessness, low income, unemployed, alcoholism, drug addiction, transportation, low edu. Level, literacy, decrease access to med. care, shelter, rehab)? @ -[No] Was there de-escalation of care discussed even if they declined (Discuss DNR or withdrawal of care, Hospice)? DNR status @ -[No] What co-morbidities impacted this encounter? (DM, HTN, Smoking, COPD, CAD, Cancer, CVA, ARF, Chemo, Hep., AIDS, mental health diagnosis, sleep apnea, morbid obesity)? @ -[Nasal cannula use Was patient admitted / discharged? Hospital course, mention meds given and route, prescriptions, significant lab abnormalities, going to OR and other pertinent info. @ -[The patient is observed and had no further bleeding. There is drying of the nasal mucosa and I did apply bacitracin ointment. Discussed appropriate further care and follow-up as well as return parameters. Undiagnosed new problem with uncertain prognosis? @ -[No] Drug Therapy requiring intensive monitoring for toxicity (Heparin, Nitro, Insulin, Cardizem)? @ -[No] Were any procedures done? @ -[No] Diagnosis/symptom? @ -[Acute epistaxis Acute, or Chronic, or Acute on Chronic? @ -[Acute Uncomplicated (without systemic symptoms) or Complicated (systemic symptoms)? @ -[Uncomplicated Side effects of treatment? @ -[No] Exacerbation, Progression, or Severe Exacerbation? @ -[No] Poses a threat to life or bodily function? How? (Chest pain, USA, AR, pneumonia, PE, COPD, DKA, ARF, appy, cholecystitis, CVA, Diverticulitis, Homicidal, Suicidal, threat to staff... and all critical care pts) @ -[No] - Lab Data Result diagrams: 03/26/24 04:42 03/26/24 04:42 Lab Results 03/26/24 03/26/24 03/26/24 Range/Units 04:42 04:42 04:42 WBC 4.7 (3.8-10.6) k/uL RBC 3.52 L (3.80-5.40) m/uL Hgb 10.4 L (11.4-16.0) gm/dL Hct 33.6 L (34.0-46.0) % MCV 95.3 (80.0-100.0) fL MCH 29.6 (25.0-35.0) pg MCHC 31.1 (31.0-37.0) g/dL RDW 14.2 (11.5-15.5) % Plt Count 194 (150-450) k/uL MPV 8.0 Neutrophils % 73 % Lymphocytes % 18 % Monocytes % 6 % Eosinophils % 1 % Basophils % 0 % Neutrophils # 3.4 (1.3-7.7) k/uL Lymphocytes # 0.9 L (1.0-4.8) k/uL Monocytes # 0.3 (0-1.0) k/uL Eosinophils # 0.1 (0-0.7) k/uL Basophils # 0.0 (0-0.2) k/uL Hypochromasia Slight PT 11.1 (10.0-12.5) sec INR 1.0 (<1.2) APTT 23.5 (22.0-30.0) sec Sodium 136 L (137-145) mmol/L Potassium 3.5 (3.5-5.1) mmol/L Chloride 91 L (98-107) mmol/L Carbon Dioxide 41 H* (22-30) mmol/L Anion Gap 4 mmol/L BUN 15 (7-17) mg/dL Creatinine 0.53 (0.52-1.04) mg/dL Est GFR (CKD-EPI)AfAm >90 (>60 ml/min/1.73 sqM) Est GFR (CKD-EPI)NonAf >90 (>60 ml/min/1.73 sqM) Glucose 128 H (74-99) mg/dL Calcium 8.6 (8.4-10.2) mg/dL Disposition Clinical Impression: Epistaxis Disposition: HOME SELF-CARE Condition: Good Instructions (If sedation given, give patient instructions): Nosebleed (ED) Is patient prescribed a controlled substance at d/c from ED?: No Referrals: Yao Delvalle DO [Primary Care Provider] - 1-2 days
== END 2024-03-26 07:26 | disposition home or self-care (01) ==
LOC: EC 03:16
DX: R04.0 Epistaxis (principal); Z87.891 Personal history of nicotine dependence; Z88.8 Allergy status to other drugs, medicaments and biological substances
CPT/HCPCS: 36415; 80048; 85025; 85610; 85730; 96365; 99284

== ENCOUNTER → 2024-09-23 | Outpatient (CLI) | payer MEDICARE ==
[2024-09-23 15:33] LABS: ALT 8 U/L (8-44); AST 17 U/L (13-35); Albumin 3.8 g/dL (3.8-4.9); Albumin/Globulin Ratio 1.36 Ratio (1.60-3.17); Alkaline Phosphatase 123 U/L (41-126); Calcium 9.4 mg/dL (8.7-10.3); Carbon Dioxide 33.4 mmol/L (21.6-31.8); Chloride 94 mmol/L (96-109); Chol/HDL Ratio 2.87 Ratio; Globulin 2.8 g/dL (1.6-3.3); Glucose 124 mg/dL (70-110); LDL Cholesterol,Calculated 83.4 mg/dL (0.0-131.0); Potassium 4.4 mmol/L (3.5-5.5); Sodium 138 mmol/L (135-145); Total Bilirubin 0.4 mg/dL (0.3-1.2); Total Protein 6.6 g/dL (6.2-8.2)
[2024-09-23 15:43] LABS: Basophils % (A) 0.2 %; Eosinophils % (A) 4.1 %; HCT 38.8 % (37.2-46.3); Lymphocytes # (A) 1.46 X 10*3/uL (0.90-5.00); Lymphocytes % (A) 26.2 %; MCH 29.3 pg (27.0-32.0); MCHC 30.9 g/dL (32.0-37.0); MCV 94.9 FL (80.0-97.0); Mean Platelet Volume 10.2 FL (9.5-12.2); Monocytes % (A) 10.9 %; NRBC Per 100 WBC 0 X 10*3/uL (0.00-0.01); Neutrophils # (A) 3.26 X 10*3/uL (1.80-7.70); Neutrophils % (A) 58.4 %; Platelet Count 226 X 10*3/uL (140-440); RBC 4.09 X 10*6/uL (4.10-5.20); RDW 13.7 % (11.5-14.5); WBC 5.58 X 10*3/uL (4.50-10.00)
[2024-09-23 15:44] LABS: Basophils # (A) 0.01 X 10*3/uL (0.00-0.10); Eosinophils # (A) 0.23 X 10*3/uL (0.04-0.35); Monocytes # (A) 0.61 X 10*3/uL (0.20-1.00)
[2024-09-23 21:41] LABS: Microalbumin Creatinine Ratio <8 mg/g Cr (0-30)
== END | disposition home or self-care (01) ==
LOC: LABWHC1 11:00
PROVIDERS: ATTEND Family Medicine
DX: I50.30 Unspecified diastolic (congestive) heart failure (principal); E11.9 Type 2 diabetes mellitus without complications; J44.9 Chronic obstructive pulmonary disease, unspecified
CPT/HCPCS: 36415; 80053; 80061; 82043; 82570; 84443; 85025